=== PATIENT | female | born 1975 | race Caucasian/White ===

== ENCOUNTER 2017-12-17 11:41 | Emergency (ER) | payer OTHER ==
[2017-12-17 11:49] VITALS: BP 122/68
[2017-12-17 12:21] LABS: HCG Qualitative,Urine Negative (Negative)
[2017-12-17 12:24] LABS: Bacteria,Urine 1+ /HPF (Negative); Bilirubin,Urine NEG (Negative); Blood,Urine NEG (Negative); Color,Urine Yellow (Yellow); Mucus,Urine FEW /HPF; Protein,Urine <15 mg/dL mg/dL (Negative); Urobilinogen,Urine < 2.0 mg/dL (<2.0); WBC,Urine < 1.0 /HPF (0.0-6.0)
[2017-12-17] MEDS ORDERED: MOTRIN PO ONE (12:31)
[2017-12-17] MEDS ORDERED: NORCO 7.5/325 PO ONE (12:31)
[2017-12-17 12:53] LABS: Basophils # (Auto) 0.1 K/mm3 (0.0-0.1); Basophils % (Auto) 0.8 % (0.0-1.8); Eosinophils # (Auto) 0.1 K/mm3 (0.0-0.4); Eosinophils % (Auto) 1.4 % (0.0-4.3); Hematocrit 40.3 % (30.3-42.9); Hemoglobin 13.1 gm/dl (10.1-14.3); Lymphocytes # (Auto) 2.1 K/mm3 (1.2-5.4); Lymphocytes % (Auto) 32.7 % (13.4-35.0); Mean Corpuscular HGB Conc 33 % (30-34); Mean Corpuscular Hemoglobin 26 pg (28-32); Mean Corpuscular Volume 81 fl (79-97); Monocytes # (Auto) 0.6 K/mm3 (0.0-0.8); Monocytes % (Auto) 9.3 % (0.0-7.3); Platelet Count 218 K/mm3 (140-440); Red Blood Count 4.99 M/mm3 (3.65-5.03)
--- NOTE | 2017-12-17 13:06 | Emergency Department Report ---
Blank Doc - Documentation Documentation: This is a 42-year-old female who is presenting with left-sided flank pain for approximately a week. Patient's has some urinary frequency and mild dysuria. Patient states she doesn't think there is any blood in her urine. Patient denies any nausea vomiting fevers chills abdominal pain cough at this time. Patient states that the pain as a 5 out of 10 in severity. Urinalysis was relatively within normal limits therefore blood work and a CT stone protocol has been ordered.
[2017-12-17 13:14] LABS: Alanine Aminotransferase 11 units/L (7-56); Albumin 3.9 g/dL (3.9-5); BUN/Creatinine Ratio 12; Blood Urea Nitrogen 6 mg/dL (7-17); Calcium 8.7 mg/dL (8.4-10.2); Hemolysis Index 4
--- NOTE | 2017-12-17 13:47 | Cat Scan Report ---
FINAL REPORT EXAM: CT ABDOMEN PELVIS WO CON HISTORY: left flank pain, urinary frequuency TECHNIQUE: CT of the abdomen and pelvis was performed without intravenous contrast. Reconstructions were included in the coronal and sagittal planes. PRIORS: None. FINDINGS: Lower thorax: A calcified left lower lobe granuloma is seen. The visualized portions of the heart are normal. Liver: The liver is normal in attenuation. No intrahepatic biliary duct dilation. No focal hepatic lesions. Gallbladder/ biliary system: No cholelithiasis. The common bile duct appears nondilated. Spleen: No splenic lesions are seen. Pancreas: No pancreatic lesions are seen. No pancreatic duct dilation. Kidneys: No renal masses, cysts or hydronephrosis. No renal or ureteral calcifications. Adrenal glands: No adrenal masses. Vasculature: The abdominal aorta is nondilated. Lymph nodes: No enlarged lymph nodes are seen in the abdomen or pelvis. Bowel, mesentery, peritoneum: No bowel obstruction. No free fluid or free air. The appendix is normal. No colonic diverticulosis. No bowel wall thickening. Urinary bladder: No filling defects are seen. Pelvis: Calcification in the posterior aspect of the uterus may represent a calcifying fibroid. Abdominal wall: Small fat containing umbilical hernia is seen. Bones: No acute or chronic osseous finding. IMPRESSION: No acute intra-abdominal or intra-pelvic process.
--- NOTE | 2017-12-17 14:11 | Emergency Department Report ---
HPI - General Chief Complaint: Abdominal Pain Time Seen by Provider: 12/17/17 12:01 - HPI HPI: This is a 42-year-old female with no prior medical history who presents to ED complaining of left flank pain 1 week. Patient describes pain as throbbing and pressure-like that feels like a constant pulling pain. Patient denies fever /chills/nausea/vomiting/diarrhea/chest pain/shortness of breath/vaginal discharge/vaginal bleed. Patient does admit increased urinary frequency but denies dysuria. She states last menstrual period was 2 15,018. She does states she is not on any medication. ED Past Medical Hx - Past Medical History Previous Medical History?: No - Surgical History Past Surgical History?: Yes Additional Surgical History: c-sectionx3 - Social History Smoking Status: Never Smoker Substance Use Type: None - Medications Home Medications: Home Medications Medication Instructions Recorded Confirmed Last Taken Type Ciprofloxacin HCl [Ciprofloxacin 500 mg PO Q12HR #14 tab 12/17/17 Unknown Rx TAB] Naproxen [Naprosyn] 500 mg PO BID #30 tablet 12/17/17 Unknown Rx ED Review of Systems ROS: Stated complaint: ABD PN Other details as noted in HPI Constitutional: denies: chills, fever Eyes: denies: eye pain, eye discharge, vision change ENT: denies: ear pain, throat pain Respiratory: denies: cough, shortness of breath, wheezing Cardiovascular: denies: chest pain, palpitations Endocrine: no symptoms reported Gastrointestinal: denies: abdominal pain, nausea, diarrhea Genitourinary: denies: urgency, dysuria, discharge Musculoskeletal: denies: back pain, joint swelling, arthralgia Skin: denies: rash, lesions Neurological: denies: headache, weakness, paresthesias Psychiatric: denies: anxiety, depression Hematological/Lymphatic: denies: easy bleeding, easy bruising Physical Exam - Physical Exam Vital Signs: Vital Signs 12/17/17 11:45 Temperature 97.8 F Pulse Rate 68 Respiratory 18 Rate Blood Pressure 122/68 O2 Sat by Pulse 99 Oximetry Physical Exam: GENERAL: Alert and oriented x3, no apparent distress, Normal Gait, atraumatic. HEAD: Head is normocephalic and a-traumatic. NECK: Supple. Non edematous, No carotid bruits. No lymphadenopathy or thyromegaly. No C-spine tenderness LUNGS: Symetrical with respiration, No wheezing, no rales or crackles, CTAB. HEART: S1, S2 present, regular rate and rhythm without murmur, no rubs, no gallops. Non tender to palpation ABDOMEN: No organomegaly was noted,Positive bowel sounds, soft, and non- distended. tenderness to palpation of llq left flank ,nontender on all other Quadrants, NO CVA tenderness. BACK: Full range of motion, no spinal tenderness, nontender to palpation. BREAST: Symetrical, Supple bilaterally, No Masses, lumps, lesions, ulcerations. SKIN: Warm and dry, No lesions, No ulceration or induration present. ED Course Vital Signs 12/17/17 11:45 Temperature 97.8 F Pulse Rate 68 Respiratory 18 Rate Blood Pressure 122/68 O2 Sat by Pulse 99 Oximetry ED Medical Decision Making - Lab Data Result diagrams: 12/17/17 12:42 12/17/17 12:42 - Radiology Data Radiology results: report reviewed, image reviewed FINAL REPORT EXAM: CT ABDOMEN PELVIS WO CON HISTORY: left flank pain, urinary frequuency TECHNIQUE: CT of the abdomen and pelvis was performed without intravenous contrast. Reconstructions were included in the coronal and sagittal planes. PRIORS: None. FINDINGS: Lower thorax: A calcified left lower lobe granuloma is seen. The visualized portions of the heart are normal. Liver: The liver is normal in attenuation. No intrahepatic biliary duct dilation. No focal hepatic lesions. Gallbladder/ biliary system: No cholelithiasis. The common bile duct appears nondilated. Spleen: No splenic lesions are seen. Pancreas: No pancreatic lesions are seen. No pancreatic duct dilation. Kidneys: No renal masses, cysts or hydronephrosis. No renal or ureteral calcifications. Adrenal glands: No adrenal masses. Vasculature: The abdominal aorta is nondilated. Lymph nodes: No enlarged lymph nodes are seen in the abdomen or pelvis. Bowel, mesentery, peritoneum: No bowel obstruction. No free fluid or free air. The appendix is normal. No colonic diverticulosis. No bowel wall thickening. Urinary bladder: No filling defects are seen. Pelvis: Calcification in the posterior aspect of the uterus may represent a calcifying fibroid. Abdominal wall: Small fat containing umbilical hernia is seen. Bones: No acute or chronic osseous finding. IMPRESSION: No acute intra-abdominal or intra-pelvic process. Transcribed By: MG Dictated By: FRANCISCO JAVIER MERRILL MD Electronically Authenticated By: FRANCISCO JAVIER MERRILL MD Signed Date/Time: 12/17/17 6332 - Medical Decision Making 42-year-old female presents with UTI ED course: CBC, CMP, urinalysis, urine test, CT abdomen ordered. Labs within normal limits, urinalysis shows positive bacteria CT scan shows no abnormalities I discussed this patient her results. I discussed with the patient that urinary tract infections may cause flank pain. The muscular in nature. I discussed with the patient to monitor symptoms and take note. I discussed her be sent home antibiotics and pain control. I discussed with the patient if pain persists to follow-up with hydraulic lift driver as referred. I discussed if worsening symptoms or new onset of symptoms to return to ED immediately Vital signs are normal patient is in no acute distress she is laying comfortable in ED room All patient encounter was assisted with paper plate machine tender which patient brought with her. Patient understood all instructions given. Critical care attestation.: If time is entered above; I have spent that time in minutes in the direct care of this critically ill patient, excluding procedure time. ED Disposition Clinical Impression: Flank pain UTI (urinary tract infection) Qualifiers: Urinary tract infection type: acute cystitis Hematuria presence: without hematuria Qualified Code(s): N30.00 - Acute cystitis without hematuria Disposition: - TO HOME OR SELFCARE Is pt being admited?: No Does the pt Need Aspirin: No Condition: Stable Instructions: Urinary Tract Infection in Women (ED), Abdominal Pain (ED), Flank Pain (ED) Additional Instructions: Make sure to follow up with the primary care physician as discussed. Take all your medications as you've been prescribed. If you have any worsening symptoms or develop new symptoms please return to ED immediately. Prescriptions: Ciprofloxacin HCl [Ciprofloxacin TAB] 500 mg PO Q12HR #14 tab Naproxen [Naprosyn] 500 mg PO BID #30 tablet Referrals: PRIMARY CAREMD [Primary Care Provider] - 3-5 Days MARCUS MARSH MD [Referring] - 3-[address] [facility] [Provider Group] - 3-5 Days [facility] [Provider Group] - 3-5 Days Forms: Accompanied Note, Work/School Release Form(ED) Time of Disposition: 14:26
== END 2017-12-17 14:39 | disposition home or self-care (01) ==
LOC: ED 11:41
DX: N30.00 Acute cystitis without hematuria (principal)
CPT/HCPCS: 36415; 74176; 80053; 81001; 81025; 85025